=== PATIENT | male | born 1940 | race Caucasian/White ===

== ENCOUNTER 2018-03-02 07:37 | Outpatient (CLI) | payer MEDICARE ==
[2018-03-02 09:16] LABS: Hemoglobin 14.1 g/dL (14.0-18.0); Mean Corpuscular HGB CONC 32.2 g/dL (32.0-36.0); Mean Corpuscular Hemoglobin 29.5 pg (27.0-31.0); Mean Corpuscular Volume 91.7 fL (78.0-98.0); Mean Platelet Volume 7.8 fL (7.4-10.4); Platelet Count 185 thou/uL (130-400); RBC Distribution Width 13.4 % (11.5-14.5); Red Blood Cell (RBC) Count 4.79 mill/uL (4.70-6.10); White Blood Cell (WBC) Count 5.2 thou/uL (4.8-10.8)
[2018-03-02 09:27] LABS: PTT 32.3 SEC (22.9-36.1); Prothrombin Time 13.1 SEC (12.0-14.7)
[2018-03-02 09:32] LABS: ALT (SGPT) 25 U/L (8-55); AST (SGOT) 25 U/L (5-34); Albumin 4.5 g/dL (3.4-4.8); Alkaline Phosphatase 101 U/L (40-150); Anion Gap 15 mmol/L (10-20); BUN (Urea Nitrogen) 18 mg/dL (8.4-25.7); Bilirubin, Total 0.4 mg/dL (0.2-1.2); Calc. Creatinine Clearance 0 mL/min (70-130); Calcium 9.6 mg/dL (7.8-10.44); Carbon Dioxide 24 mmol/L (23-31); Cardiac Risk 6.2 (Less than 4.5); Chloride 106 mmol/L (98-107); Cholesterol 203 mg/dl (< 200 Desired); Estimated GFR-MDRD 71; Globulin 3.8 g/dL (2.4-3.5); Glucose 105 mg/dL (83-110); HDL Cholesterol 33 mg/dL (>60 Neg Risk); LDL Cholesterol, Calculated 140 mg/dL; Protein, Total 8.3 g/dL (5.8-8.1); Sodium 141 mmol/L (136-145); Triglycerides 152 mg/dL (Less than 150)
== END 2018-03-02 07:38 | disposition home or self-care (01) ==
LOC: LABBT 07:37
PROVIDERS: ATTEND Internal Medicine Cardiovascular Disease
DX: Z01.818 Encounter for other preprocedural examination (principal); I35.0 Nonrheumatic aortic (valve) stenosis
CPT/HCPCS: 80053; 80061; 85027; 85610; 85730; 93005; 93010

== ENCOUNTER → 2018-03-06 | Day surgery (SDC) | payer MEDICARE ==
[2018-03-02 08:18] VITALS: BMI 33.6
[~2018-03-06] MED LIST: Diazepam 5 MG TAB ONE; Fentanyl 100 MCG/2 ML VIAL ONE; Iopamidol 370 76% 100 ML VIAL ONE; Lidocaine 1% (PF) 30 ML VIAL ONE; Midazolam HCl 2 mg/2 ml Vial ONE; hydrALAZINE 20 MG/ML VIAL ONE
== END ==
LOC: CCL 06:01
PROVIDERS: ATTEND Internal Medicine Cardiovascular Disease
DX: I25.10 Atherosclerotic heart disease of native coronary artery without angina pectoris (principal); I35.0 Nonrheumatic aortic (valve) stenosis; I10 Essential (primary) hypertension; M19.90 Unspecified osteoarthritis, unspecified site; E78.00 Pure hypercholesterolemia, unspecified; Z79.82 Long term (current) use of aspirin; Z79.899 Other long term (current) drug therapy; Z79.84 Long term (current) use of oral hypoglycemic drugs; Z88.2 Allergy status to sulfonamides; Z88.8 Allergy status to other drugs, medicaments and biological substances
CPT/HCPCS: 76942; 93454; C1769; 99152; 99153; J0360; J1644; J2001; J2250; J3010

== ENCOUNTER → 2018-04-17 | Day surgery (SDC) | payer MEDICARE ==
[2018-04-16 15:23] VITALS: BMI 33.3
[~2018-04-17] MED LIST changes: -Diazepam 5 MG TAB ONE; -Fentanyl 100 MCG/2 ML VIAL ONE; -Iopamidol 370 76% 100 ML VIAL ONE; -Lidocaine 1% (PF) 30 ML VIAL ONE; -Midazolam HCl 2 mg/2 ml Vial ONE; +PROPOFOL 200 MG/20 ML VIAL ONE; -hydrALAZINE 20 MG/ML VIAL ONE
--- NOTE | 2018-04-18 03:01 | OP ---
PREPROCEDURE DIAGNOSIS: Aortic stenosis. POSTPROCEDURE DIAGNOSIS: Severe aortic stenosis. PROCEDURE PERFORMED: ANDREA. PROCEDURE IN DETAIL: The patient was consented for the procedure. I discussed the procedure in full detail with Mr. Rodrigez. Risks included but are not limited to damage to teeth, mouth, back of the th roat, esophagus requiring emergent surgery, reaction to medication. All questions were answere d. Conscious sedation performed with propofol. The probe passed easily into the esophagus. FINDINGS: Aortic valve is severely sclerotic. There is marked decreased excursion present. Multipl e measurements were performed measuring between 0.6 and 0.9. IMPRESSION: Severe aortic stenosis.
== END ==
LOC: CCL 10:17
PROVIDERS: ATTEND Internal Medicine Cardiovascular Disease
PROC: B24BZZ4 Ultrasonography of Heart with Aorta, Transesophageal (ICD-10-PCS; principal; 2018-04-17)
DX: I35.0 Nonrheumatic aortic (valve) stenosis (principal); I48.0 Paroxysmal atrial fibrillation; I10 Essential (primary) hypertension; M19.90 Unspecified osteoarthritis, unspecified site; M10.9 Gout, unspecified; E78.00 Pure hypercholesterolemia, unspecified; E11.9 Type 2 diabetes mellitus without complications; Z79.82 Long term (current) use of aspirin; Z79.84 Long term (current) use of oral hypoglycemic drugs; Z79.899 Other long term (current) drug therapy; Z88.2 Allergy status to sulfonamides; Z88.8 Allergy status to other drugs, medicaments and biological substances
CPT/HCPCS: 93312; J2704

== ENCOUNTER 2018-08-10 14:00 | Inpatient (IN) | payer MEDICARE ==
[2018-08-10 15:44] LABS: Hemoglobin 13.8 g/dL (14.0-18.0); Mean Corpuscular HGB CONC 34.9 g/dL (32.0-36.0); Mean Corpuscular Hemoglobin 32.3 pg (27.0-31.0); Mean Corpuscular Volume 92.5 fL (78.0-98.0); Mean Platelet Volume 8.3 fL (7.4-10.4); Platelet Count 207 thou/uL (130-400); RBC Distribution Width 13.3 % (11.5-14.5); Red Blood Cell (RBC) Count 4.28 mill/uL (4.70-6.10)
[2018-08-10 16:12] LABS: Anion Gap 13 mmol/L (10-20); BUN (Urea Nitrogen) 21 mg/dL (8.4-25.7); Calc. Creatinine Clearance 0 mL/min (70-130); Calcium 9.1 mg/dL (7.8-10.44); Carbon Dioxide 21 mmol/L (23-31); Chloride 107 mmol/L (98-107); Estimated GFR-MDRD 55; Glucose 120 mg/dL (83-110); Potassium 3.7 mmol/L (3.5-5.1); Sodium 137 mmol/L (136-145)
--- NOTE | 2018-08-13 08:24 | HP ---
PREOPERATIVE HISTORY AND PHYSICAL PROPOSED DATE OF SURGERY: 08/14/2018 HISTORY OF PRESENT ILLNESS: Mr. Rodrigez is an 78-year-old gentleman being admitted for aortic valve replacement, symptoms including shortness of breath, fatigue. He has no chest pain. He has no rhythm disturbance history. He has no congestive heart failure symptoms. He has no syncope. He has had paroxysmal atrial fibrillation ablated in the past. He has had no recurrent symptomatology. He has had cardiac catheterization, which shows minimal coronary disease. Echocardiogram shows severe aortic stenosis. Ejection fraction is preserved. CT scan of the chest shows anatomy amenable to minimally invasive approach. PAST MEDICAL HISTORY: 1. Aortic stenosis. 2. Hypertension. 3. DJD. 4. Achalasia. 5. Gout. 6. Hypercholesterolemia. 7. History of atrial fibrillation, status post ablation. 8. Diabetes mellitus. PAST SURGICAL HISTORY: 1. Bilateral cataract surgery. 2. Atrial fibrillation ablation. 3. Knee replacement. SOCIAL HISTORY: He is a nonsmoker. He is . ALLERGIES: SIMVASTATIN, SULFA ANTIBIOTICS, MONOSODIUM GLUTAMATE, AND ETODOLAC. CURRENT MEDICATIONS: 1. Aspirin 81 mg daily. 2. Sertraline 50 mg daily. 3. Isosorbide mononitrate 10 mg b.i.d. 4. Amlodipine 5 mg daily. 5. . 6. Atorvastatin 10 mg daily. 7. Trazodone 50 mg at bedtime. 8. Indomethacin 25 mg b.i.d. REVIEW OF SYSTEMS: A 10-point review of systems is performed and is negative except as stated above. PHYSICAL EXAMINATION: GENERAL: This is a well-developed and well-nourished male, resting comfortably in the examination room. VITAL SIGNS: Height is 5 feet 9 inches, weight is 225 pounds, heart rate is 93, and blood pressure is 135/79. HEENT: Sclerae nonicteric. Pupils are equal and round bilaterally. NECK: Supple. He has no carotid bruit. CHEST: Clear bilaterally. HEART: Rhythm is regular. He has a hard systolic murmur heard mainly in the right chest. ABDOMEN: Soft and nontender. EXTREMITIES: There is no edema. VASCULAR: There are palpable carotid, radial, and femoral pulses bilaterally. NEUROLOGIC: Grossly intact. IMAGING STUDIES: ANDREA shows an aortic valve area at 0.6. He did not have gradients performed on cath or on echo. ASSESSMENT AND PLAN: This is a pleasant 78-year-old gentleman, who is here for aortic valve replacement. We will plan for a bioprosthetic valve replacement. We have discussed the potential for minimally invasive surgery and he is agreeable. Job ID: [id number]
[2018-08-14] MEDS ORDERED: CEFAZOLIN 2 GM/50 ML BAG ONE (06:07)
[2018-08-14] MEDS ORDERED: Albumin 5% 500 ML ONE (06:09)
[2018-08-14] MEDS ORDERED: Vancomycin HCl 1.5 GM in Sodium Chloride 0.9% 250 ML 300 ML IVPB SCH (06:15)
[2018-08-14] MEDS ORDERED: Fentanyl 100 MCG/2 ML VIAL ONE ×2 (06:22→06:57)
[2018-08-14] MEDS ORDERED: Midazolam HCl 2 mg/2 ml Vial ONE ×2 (06:22→06:57)
[2018-08-14] MEDS ORDERED: Midazolam HCl 5 mg/5 ml Vial ONE (06:24)
[2018-08-14] MEDS ORDERED: Vecuronium 10 MG VIAL ONE ×2 (06:24→16:27)
[2018-08-14] MEDS ORDERED: Dexmedetomidine 200 MCG/2 ML VIAL ONE (06:24)
[2018-08-14] MEDS ORDERED: Insulin Regular 300 UNITS/3 ML VIAL ONE (09:29)
[2018-08-14] MEDS ORDERED: SUGAMMADEX SODIUM 500 MG/5 ML VIAL ONE (10:09)
[2018-08-14] MEDS ORDERED: SUGAMMADEX SODIUM 200 MG/2 ML VIAL ONE (10:10)
[2018-08-14] MEDS ORDERED: Bupivacaine HCl 0.5%/Epinephrine 1:200,000/PF 30 ml Vial ONE (11:17)
[2018-08-14] MEDS ORDERED: niCARdipine HCl 25 MG in Sodium Chloride 0.9% 250 ML 240 ML IVPB PRN (12:08)
[2018-08-14] MEDS ORDERED: Ondansetron PF 4 MG/2 ML Vial IVP PRN (12:08)
[2018-08-14] MEDS ORDERED: Bisacodyl 5 MG TAB PO PRN (12:08)
[2018-08-14] MEDS ORDERED: Nitroglycerin 50 MG/250 ML BOT 250 ML IVPB PRN (12:08)
[2018-08-14] MEDS ORDERED: D5 1/2 NS w/20 mEq KCL 1,000 ML IV SCH (12:08)
[2018-08-14] MEDS ORDERED: Norepinephrine 8 MG/0.9% NS 250 ML IVPB PRN (12:08)
[2018-08-14] MEDS ORDERED: Acetaminophen 325 MG TAB PO PRN (12:08)
[2018-08-14] MEDS ORDERED: Post-Op Insulin Drip Protocol IVPB ONE (12:08)
[2018-08-14] MEDS ORDERED: Guaifenesin DM 100-10/5 ML UDCUP PO PRN (12:08)
[2018-08-14] MEDS ORDERED: Mag-Al 1200 mg/1200 mg/30 ML UDCUP PO PRN (12:08)
[2018-08-14] MEDS ORDERED: Bisacodyl 10 MG SUPP PR PRN (12:08)
[2018-08-14] MEDS ORDERED: Morphine 2 MG/ML SYRINGE SLOW IVP PRN (12:08)
[2018-08-14] MEDS ORDERED: Hetastarch 6% 500 ML 500 ML IVPB PRN (12:08)
[2018-08-14] MEDS ORDERED: hydrALAZINE 20 MG/ML VIAL SLOW IVP PRN (12:08)
[2018-08-14] MEDS ORDERED: Fentanyl 100 MCG/2 ML VIAL SLOW IVP PRN (12:08)
[2018-08-14] MEDS ORDERED: HYDROcodone/Acetaminophen 5/325 mg Tablet PO PRN (12:08)
[2018-08-14] MEDS ORDERED: Magnesium 2 GM/50 ML 2 GM in Premix Bag 1 BAG IVPB SCH (12:15)
[2018-08-14] MEDS ORDERED: Insulin Regular 300 UNITS/3 ML VIAL SC PRN (12:23)
[2018-08-14] MEDS ORDERED: Dextrose 50% Abboject 50 ML SYRINGE SLOW IVP PRN (12:23)
[2018-08-14] MEDS ORDERED: Dextrose 5% in Water 1,000 ML IV PRN (12:23)
[2018-08-14 12:27] LABS: #Eosinphils 0.1 thou/uL (0.0-0.7); #Lymphocytes 2.2 thou/uL (1.20-3.40); #Neutrophils 15.2 thou/uL (1.40-6.50); %Basophils 0.1 % (0.0-1.0); %Eosinophils 0.7 % (0.0-10.0); %Lymphocytes 11.8 % (21.0-51.0); %Monocytes 5.5 % (0.0-10.0); %Neutrophils 81.9 % (42.0-75.0); Hemoglobin 12.6 g/dL (14.0-18.0); Mean Corpuscular HGB CONC 33.7 g/dL (32.0-36.0); Mean Corpuscular Hemoglobin 31.6 pg (27.0-31.0); Mean Corpuscular Volume 93.9 fL (78.0-98.0); Mean Platelet Volume 8.1 fL (7.4-10.4); Platelet Count 142 thou/uL (130-400); RBC Distribution Width 13.3 % (11.5-14.5); Red Blood Cell (RBC) Count 3.98 mill/uL (4.70-6.10); White Blood Cell (WBC) Count 18.5 thou/uL (4.8-10.8)
[2018-08-14] MEDS: Fentanyl 100 MCG/2 ML VIAL SLOW IVP PRN ×3 (12:31→16:45)
[2018-08-14 12:32] LABS: INR-International Normal Ratio 1.3; PTT 34.9 SEC (22.9-36.1); Prothrombin Time 16.5 SEC (12.0-14.7)
[2018-08-14] MEDS: Ketorolac Tromethamine 30 MG/ML VIAL IVP SCH ×3 (12:34→23:09)
[2018-08-14 12:44] LABS: Anion Gap 7 mmol/L (10-20); BUN (Urea Nitrogen) 15 mg/dL (8.4-25.7); Calc. Creatinine Clearance 118 mL/min (70-130); Calcium 8.2 mg/dL (7.8-10.44); Carbon Dioxide 24 mmol/L (23-31); Chloride 110 mmol/L (98-107); Estimated GFR-MDRD 79; Glucose 130 mg/dL (83-110); Potassium 3.5 mmol/L (3.5-5.1); Sodium 137 mmol/L (136-145)
--- NOTE | 2018-08-14 13:26 | RAD ---
AP VIEW CHEST: HISTORY: Post open heart surgery. FINDINGS: AP view chest is obtained on 08/14/2018. Comparison is made to previous exam from 04/14/2010. AP view chest demonstrates a left jugular central line in place. Right-sided chest tubes are in place. Cardiomegaly is seen. Pulmonary vascular congestion is seen. No evidence of pneumothorax seen. IMPRESSION: Right-sided chest tubes in place. There has been placement of a prosthetic aortic valve. POS: [facility]
[2018-08-14] MEDS: HYDROcodone/Acetaminophen 5/325 mg Tablet PO PRN ×2 (13:49→20:52)
[2018-08-14] MEDS: CEFAZOLIN 2 GM/50 ML BAG IVPB SCH ×2 (13:50→22:12)
[2018-08-14] MEDS: Potassium Chloride 20 MEQ/100 ML PREMIX BAG IVPB PRN (13:50)
[2018-08-14] MEDS ORDERED: Calcium Chloride 1 GM/10 ML Abboject SYRINGE ONE (16:27)
[2018-08-14] MEDS ORDERED: Lidocaine 2% PF 100 mg/5 ml Syringe ONE (16:27)
[2018-08-14] MEDS ORDERED: Potassium Chloride 60 MEQ/30 ML VIAL ONE (16:27)
[2018-08-14] MEDS ORDERED: PHENYLEPHRINE-NS 100 MCG/ML 10 ML SYRINGE ONE (16:27)
[2018-08-14] MEDS ORDERED: Heparin 5,000 UNITS/ML VIAL ONE (16:27)
[2018-08-14] MEDS ORDERED: Aminocaproic Acid 5 GM/20 ML VIAL ONE (16:27)
[2018-08-14] MEDS ORDERED: Protamine Sulfate 250 MG/25 ML VIAL ONE (16:27)
[2018-08-14] MEDS ORDERED: Nitroglycerin 50 MG/250 ML BOT ONE (16:27)
[2018-08-14] MEDS ORDERED: Sodium Bicarb 50 MEQ/50 ML VIAL ONE (16:27)
[2018-08-14] MEDS ORDERED: Magnesium 5 GM/10 ML VIAL ONE (16:27)
[2018-08-14] MEDS ORDERED: Ketorolac Tromethamine 30 MG/ML VIAL ONE (16:27)
[2018-08-14] MEDS ORDERED: Mannitol 12.5 GM/50 ML ONE (16:27)
[2018-08-14] MEDS ORDERED: ePHEDrine/0.9% NaCl/PF SYRINGE 50 mg/10 ml ONE (16:27)
[2018-08-14] MEDS ORDERED: Heparin 30,000 units/30 ml VIAL ONE (16:27)
--- NOTE | 2018-08-14 16:40 | CON ---
DATE OF CONSULTATION: REASON FOR CONSULTATION: Post-cardiac management for recent AVR. HISTORY OF PRESENT ILLNESS: Mr. Rodrigez is a very pleasant 78-year-old gentleman, whom I have seen and evaluated in the past. He has a history of severe aortic stenosis. This was felt to be symptomatic. He recently underwent minimally invasive AVR. He is currently doing well. He has been extubated. He is currently on IV nitroglycerine for blood pressure management. MEDICATIONS: Home medications include sertraline, omeprazole, Crestor, trazodone, aspirin, indomethacin, isosorbide, metformin, and amlodipine. ALLERGIES: ZOCOR AND SULFATE. SOCIAL HISTORY: No current tobacco or alcohol use. REVIEW OF SYSTEMS: A 10-point review of systems is reviewed and as above, otherwise negative. PHYSICAL EXAMINATION: GENERAL: Patient is a pleasant male who is in no acute distress. The patient appears their stated age. VITAL SIGNS: Blood pressure 100/49, pulse 60, temperature afebrile. NEUROLOGIC: The patient is alert and oriented x3 with no focal neurologic deficits. HEENT: Sclerae without icterus. Mouth has moist mucous membranes with normal pallor. NECK: No JVD. Carotid upstroke brisk. No bruits bilaterally. LUNGS: Clear to auscultation with unlabored respirations. BACK: No scoliosis or kyphosis. CARDIAC: Regular rate and rhythm with normal S1 and S2. No S3 or S4 noted. No significant rubs, murmurs, thrills, or gallops noted throughout the precordium. PMI is not displaced. There is no parasternal heave. CHEST: Small horizontal incision noted overlying the right chest. ABDOMEN: Soft, nontender, nondistended. No peritoneal signs present. No hepatosplenomegaly. No abnormal striae. EXTREMITIES: 2+ femoral and 2+ dorsalis pedis pulses. No cyanosis, clubbing, or edema. SKIN: No gross abnormalities. LABORATORY DATA: Pertinent labs: Hemoglobin 12.6. Creatinine 0.92. IMPRESSION: 1. Severe aortic stenosis, status post aortic valve replacement. 2. Diabetes mellitus. 3. Hypertension. RECOMMENDATIONS: The patient is currently doing well. We would continue current treatment. We will try to wean off his IV nitroglycerin. We will add low-dose beta-serafin therapy when more awake, likely in a.m. he appears to allergic to statin therapy. Job ID: [id number]
[2018-08-14] MEDS: Vancomycin HCl 1.5 GM in Sodium Chloride 0.9% 250 ML 300 ML IVPB SCH (17:32)
[2018-08-14 17:59] LABS: Hemoglobin 12.3 g/dL (14.0-18.0)
[2018-08-14 18:13] LABS: Potassium 4.4 mmol/L (3.5-5.1)
[2018-08-14] MEDS: Famotidine/PF 20 mg/2ml Vial SLOW IVP SCH (20:29)
[2018-08-15] MEDS: Fentanyl 100 MCG/2 ML VIAL SLOW IVP PRN (01:00)
[2018-08-15] MEDS: HYDROcodone/Acetaminophen 5/325 mg Tablet PO PRN ×4 (03:07→20:24)
[2018-08-15 04:10] LABS: #Basophils 0.1 thou/uL (0.0-0.2); #Lymphocytes 1.8 thou/uL (1.20-3.40); #Monocytes 1.1 thou/uL (0.11-0.59); #Neutrophils 7.6 thou/uL (1.40-6.50); %Basophils 0.5 % (0.0-1.0); %Eosinophils 0.1 % (0.0-10.0); %Lymphocytes 17.3 % (21.0-51.0); %Monocytes 10.2 % (0.0-10.0); %Neutrophils 71.8 % (42.0-75.0); Hemoglobin 11.8 g/dL (14.0-18.0); Mean Corpuscular HGB CONC 34.2 g/dL (32.0-36.0); Mean Corpuscular Volume 93.8 fL (78.0-98.0); Mean Platelet Volume 7.8 fL (7.4-10.4); Platelet Count 138 thou/uL (130-400); RBC Distribution Width 13.4 % (11.5-14.5); Red Blood Cell (RBC) Count 3.69 mill/uL (4.70-6.10); White Blood Cell (WBC) Count 10.6 thou/uL (4.8-10.8)
[2018-08-15 04:33] LABS: Anion Gap 9 mmol/L (10-20); BUN (Urea Nitrogen) 15 mg/dL (8.4-25.7); Calc. Creatinine Clearance 114 mL/min (70-130); Calcium 7.7 mg/dL (7.8-10.44); Carbon Dioxide 22 mmol/L (23-31); Chloride 108 mmol/L (98-107); Estimated GFR-MDRD 76; Glucose 120 mg/dL (83-110); Sodium 135 mmol/L (136-145)
[2018-08-15] MEDS: Potassium Chloride 20 MEQ/100 ML PREMIX BAG IVPB PRN (04:44)
[2018-08-15] MEDS: CEFAZOLIN 2 GM/50 ML BAG IVPB SCH (05:05)
[2018-08-15] MEDS: Ketorolac Tromethamine 30 MG/ML VIAL IVP SCH ×3 (05:06→17:22)
[2018-08-15] MEDS: Vancomycin HCl 1.5 GM in Sodium Chloride 0.9% 250 ML 300 ML IVPB SCH (05:44)
--- NOTE | 2018-08-15 06:46 | PDOC.CTH ---
Cardiology Progress Note - Subjective Doing well overall. - Objective Vital Signs Pulse Ox 08/14/18 19:54 96 Weight 288 lb 5.834 oz 08/13/18 08/14/18 08/15/18 06:59 06:59 06:59 Intake Total 1251 Output Total 2360 Balance -1109 - Physical Examination General/Neuro: alert & oriented x3, NAD Neck: carotid US brisk, no JVD present Lungs: CTA, unlabored respirations Heart: PMI normal, RRR Abdomen: NT/ND, soft Extremities: + femoral B - Labs Result Diagrams: 08/15/18 03:55 08/15/18 03:30 - Assessment/Plan s/p AVR HTN DM Doing well BB added Statin allergy on ASA IS and ambulation
[2018-08-15] MEDS: Metoprolol Tartrate 25 MG TAB PO SCH ×2 (08:40→20:18)
[2018-08-15] MEDS: Magnesium 2 GM/50 ML 2 GM in Premix Bag 1 BAG IVPB SCH (08:40)
[2018-08-15] MEDS: Famotidine/PF 20 mg/2ml Vial SLOW IVP SCH (08:40)
[2018-08-15] MEDS ORDERED: Aspirin 325 MG TAB PO SCH (09:00)
--- NOTE | 2018-08-15 09:19 | RAD ---
ONE VIEW CHEST: Comparison: 08-14-18 History: Status post open heart surgery. FINDINGS: Stable left sided internal jugular central venous catheter. Stable cardiomegaly. Lung volumes continu e to be diminished. Patchy interstitial opacities do remain. There is evidence of a right sided chest tube and mediastinal drainage catheter. IMPRESSION: No significant interval change. POS: [facility]
[2018-08-15] MEDS ORDERED: Cepastat Lozenges 1 LOZ PO PRN (14:21)
[2018-08-15] MEDS ORDERED: Bisacodyl 5 MG TAB PO PRN (17:42)
[2018-08-15] MEDS ORDERED: diphenhydrAMINE 25 MG CAP PO PRN (17:42)
[2018-08-15] MEDS ORDERED: Mineral Oil ENEMA PR PRN (17:42)
[2018-08-15] MEDS ORDERED: Mag-Al 1200 mg/1200 mg/30 ML UDCUP PO PRN (17:42)
[2018-08-15] MEDS ORDERED: Artificial Tear Sol 15 ML BOT EA EYE PRN (17:42)
[2018-08-15] MEDS ORDERED: Nitroglycerin 0.4 MG TAB (25 Tab Bottle) SL PRN (17:42)
[2018-08-15] MEDS ORDERED: Guaifenesin DM 100-10/5 ML UDCUP PO PRN (17:42)
[2018-08-15] MEDS ORDERED: Zolpidem Tartrate 5 MG TAB PO PRN (17:42)
[2018-08-15] MEDS ORDERED: Bisacodyl 10 MG SUPP PR PRN (17:42)
[2018-08-15] MEDS: Famotidine 20 MG TAB PO SCH (20:18)
--- NOTE | 2018-08-15 22:02 | EKG ---
Test Reason : POST CABG Blood Pressure : / mmHG Vent. Rate : 077 BPM Atrial Rate : 077 BPM P-R Int : 234 ms QRS Dur : 094 ms QT Int : 440 ms P-R-T Axes : 049 -13 042 degrees QTc Int : 497 ms Sinus rhythm with 1st degree A-V block Septal infarct (cited on or before 20-MAR-2015) Abnormal ECG When compared with ECG of 10-AUG-2018 15:04, MS interval has increased QRS axis Shifted right Questionable change in initial forces of Anterior leads Confirmed by Charlie MACIAS ([id number]) on 08/15/2018 10:02:02 PM Referred By: Delgado ZEPEDA Confirmed By:Charlie MACIAS
[2018-08-16] MEDS: Ketorolac Tromethamine 30 MG/ML VIAL IVP SCH ×4 (00:06→18:20)
[2018-08-16] MEDS: HYDROcodone/Acetaminophen 5/325 mg Tablet PO PRN ×2 (00:07→04:24)
[2018-08-16] MEDS ORDERED: Furosemide 40 MG TAB PO SCH (06:45)
--- NOTE | 2018-08-16 07:44 | CON ---
DATE OF CONSULTATION: 08/15/2018 HISTORY OF PRESENT ILLNESS: Mr. Rodrigez is a very pleasant gentleman, who has undergone aortic valve replacement. Apparently, he was referred to Dr. Rodriguez for progressive shortness of breath after being identified as having aortic stenosis. He has been extubated per protocol and had his chest tube removed. He has no complaints other than some mild chest discomfort at this time. PAST MEDICAL HISTORY: Remarkable for; 1. Hypertension. 2. Achalasia. 3. History of gout. 4. History of lipid disorder. 5. History of an atrial fibrillation ablation. 6. History of diabetes. 7. History of cataract surgery. 8. History of knee replacement. SOCIAL HISTORY: He is a nonsmoker and nondrinker. FAMILY HISTORY: He is . 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 ALLERGIES: TO SIMVASTATIN, SULFA, ETODOLAC. MEDICATIONS: Prior to admission, he was on; 1. Aspirin. 2. Zoloft. 3. Isosorbide mononitrate. 4. Amlodipine. 5. Atorvastatin. 6. Trazodone. 7. Indomethacin. REVIEW OF SYSTEMS: A 10-point review of systems completed, is otherwise negative. PHYSICAL EXAMINATION: GENERAL: He is a very pleasant gentleman, in no distress. VITAL SIGNS: Blood pressure 122/73, heart rate 75, respiratory rate 17, oximetry is 90% to 92% on room air. HEENT: Pupils are equal. Sclerae anicteric. NECK: Supple. LUNGS: Clear. HEART: Regular rhythm. S1 and S2 are audible. ABDOMEN: Soft and nontender. EXTREMITIES: No clubbing, cyanosis, or edema. LABORATORY DATA: White count 10.6, hemoglobin 11.8, and platelets 138,000. Sodium 135, potassium 4, chloride 108, bicarbonate 22, BUN 15, and creatinine 0.95. IMPRESSION: 1. Status post replacement of his aortic valve via minimally invasive approach. Clinically doing well. 2. History of questionable asbestos exposure. I see nothing on his radiograph suggestive of asbestosis. He declined a workup for this via the [employer] when he worked in [place]. 3. he appears stable postoperatively. TIME SPENT: This is a 50-minute consult, with greater than 50% of time was spent on the unit coordinating care. Job ID: [id number] [facility]
[2018-08-16 08:20] VITALS: BMI 33.9
[2018-08-16] MEDS: Famotidine 20 MG TAB PO SCH ×2 (08:42→22:42)
[2018-08-16] MEDS: Metoprolol Tartrate 25 MG TAB PO SCH ×2 (08:42→22:43)
[2018-08-16] MEDS: Aspirin 325 mg Enteric Coated Tablet PO SCH (08:43)
[2018-08-16] MEDS: Magnesium 2 GM/50 ML 2 GM in Premix Bag 1 BAG IVPB SCH (08:43)
[2018-08-16] MEDS: Amlodipine 5 MG TAB PO SCH ×2 (08:43→22:42)
--- NOTE | 2018-08-16 11:14 | PRG ---
DATE OF SERVICE: 08/16/2018 SUBJECTIVE: Elia has no complaints today. OBJECTIVE: VITAL SIGNS: He is afebrile, heart rate 70, respiratory rate 18, oximetry is 95%, and blood pressure 144/75. LUNGS: Clear with the exception, possibly slight decrease in breath sounds in his right base. HEART: Regular rhythm. S1 and S2 are normal. He has a grade 2/6 systolic murmur in his aortic outflow area. ABDOMEN: Soft and nontender. EXTREMITIES: Without edema. LABORATORY DATA: He has no new lab today other than blood sugars, which are well controlled. IMPRESSION: Status post aortic valve replacement, clinically stable. PLAN: Continue physical therapy. Job ID: [id number]
[2018-08-16 15:09] LABS: Actual Bicarbonate (HCO3v) 25 mEq/L (22-28); Analyzer IN Cardio OR; Base Excess -1.7 mEq/L (-2.0 to +3.0); Calcium, Ionized 1.04 mmol/L (1.16-1.32); Chloride (ABG LAB) 106 mmol/L (98-106); Hemoglobin (Hb) 10.4 g/dL (12.6-17.4); Potassium - ABG Lab 4.33 mmol/L (3.70-5.30); Sodium 137.2 mmol/L (133-146); pH (venous) 7.31 (7.32-7.43)
[2018-08-16 15:09] LABS: Actual Bicarbonate (HCO3a) 23.7 mEq/L (22-28); Analyzer IN Cardio OR; Base Excess (BEa) -1.4 mEq/L (-2.0 to +3.0); CO2 Tension 40.9 mmHg (35.0-45.0); Calcium, Ionized 1.14 mmol/L (1.12-1.30); Carboxyhemoglobin (COHb) 0.9 gm% (0.0-3.0); O2 Tension (PaO2) 71.9 mmHg (> 60.0); Potassium - ABG Lab 3.93 mmol/L (3.70-5.30); pH, Arterial 7.38 (7.35-7.45)
[2018-08-16 15:10] LABS: Analyzer IN Cardio OR; Base Excess (BEa) -1.8 mEq/L (-2.0 to +3.0); CO2 Tension 44.5 mmHg (35.0-45.0); Calcium, Ionized 1.04 mmol/L (1.12-1.30); Carboxyhemoglobin (COHb) 0.8 gm% (0.0-3.0); Hemoglobin (Hb) 12.4 g/dL (14.0-18.0); O2 Tension (PaO2) 388.6 mmHg (> 60.0); Potassium - ABG Lab 4.35 mmol/L (3.70-5.30); pH, Arterial 7.35 (7.35-7.45)
[2018-08-16 15:10] LABS: Actual Bicarbonate (HCO3a) 22.9 mEq/L (22-28); Analyzer IN Cardio OR; CO2 Tension 44.6 mmHg (35.0-45.0); Calcium, Ionized 0.99 mmol/L (1.12-1.30); Carboxyhemoglobin (COHb) 0.3 gm% (0.0-3.0); O2 Tension (PaO2) 181.5 mmHg (> 60.0); Potassium - ABG Lab 4.45 mmol/L (3.70-5.30); pH, Arterial 7.33 (7.35-7.45)
[2018-08-16 15:11] LABS: Actual Bicarbonate (HCO3a) 21.1 mEq/L (22-28); Analyzer IN Cardio OR; Base Excess (BEa) -4.9 mEq/L (-2.0 to +3.0); CO2 Tension 42.6 mmHg (35.0-45.0); Calcium, Ionized 1.11 mmol/L (1.12-1.30); Carboxyhemoglobin (COHb) 0.6 gm% (0.0-3.0); Hemoglobin (Hb) 12.2 g/dL (14.0-18.0); O2 Tension (PaO2) 445.1 mmHg (> 60.0); Potassium - ABG Lab 3.69 mmol/L (3.70-5.30); pH, Arterial 7.31 (7.35-7.45)
[2018-08-16 15:11] LABS: Actual Bicarbonate (HCO3a) 21.8 mEq/L (22-28); Analyzer IN Cardio OR; Base Excess (BEa) -4.4 mEq/L (-2.0 to +3.0); CO2 Tension 44.5 mmHg (35.0-45.0); Calcium, Ionized 1.17 mmol/L (1.12-1.30); Carboxyhemoglobin (COHb) 0.3 gm% (0.0-3.0); Hemoglobin (Hb) 10.9 g/dL (14.0-18.0); O2 Tension (PaO2) 89.8 mmHg (> 60.0); Potassium - ABG Lab 3.83 mmol/L (3.70-5.30); pH, Arterial 7.31 (7.35-7.45)
[2018-08-16 15:18] LABS: Puncture Site ALINE
[2018-08-16 15:19] LABS: Puncture Site ALINE
[2018-08-16 15:19] LABS: Puncture Site ALINE
[2018-08-16 15:20] LABS: Puncture Site ALINE
[2018-08-16 15:21] LABS: Puncture Site ALINE
--- NOTE | 2018-08-16 17:01 | PDOC.CTH ---
Cardiology Progress Note - Subjective Doing well - Objective Vital Signs Temp Pulse Pulse Pulse Resp BP BP 08/16/18 15:40 98.4 F 80 20 08/16/18 12:45 77 73 154/76 H 148/73 H 08/16/18 11:40 98.3 F 67 20 08/16/18 07:55 98.1 F 70 18 BP Pulse Ox Pulse Ox 08/16/18 15:40 141/69 H 94 L 08/16/18 12:45 88 L 08/16/18 11:40 150/75 H 94 L 08/16/18 07:55 144/75 H 95 Weight 229 lb 14.4 oz 08/15/18 08/16/18 08/17/18 06:59 06:59 06:59 Intake Total 1251 1680 Output Total 2360 635 Balance -1109 1045 - Physical Examination General/Neuro: alert & oriented x3, NAD Neck: carotid US brisk, no JVD present Lungs: unlabored respirations Heart: PMI normal, RRR Abdomen: NT/ND, soft Extremities: + femoral B - Labs Result Diagrams: 08/15/18 03:55 08/15/18 03:30 - Assessment/Plan AVR HTN DM doing well On BB, ASA Allergic to statin Home soon
[2018-08-16] MEDS ORDERED: Atorvastatin Calcium 10 MG TAB PO SCH (21:00)
[2018-08-17] MEDS: Ketorolac Tromethamine 30 MG/ML VIAL IVP SCH ×2 (00:01→05:57)
--- NOTE | 2018-08-17 07:44 | OP ---
DATE OF PROCEDURE: 08/14/2018 PREOPERATIVE DIAGNOSES: Aortic stenosis/hypertension/hyperlipidemia/diabetes mellitus. POSTOPERATIVE DIAGNOSES: Aortic stenosis/hypertension/hyperlipidemia/diabetes mellitus. PROCEDURE PERFORMED: Minimally invasive aortic valve replacement with #21 and Intuity bioprosthetic valve. SURGEON: Dr. Bob Rodriguez and Dr. Marcial Pratt. ANESTHESIA: General endotracheal - Dr. Holden Wilson. PUMP TIME: 106. CROSS-CLAMP TIME: 70. CORE TEMPERATURE: 34 degree Celsius. PERFUSION: Natasha Jayant. DRAIN: 24-Polish chest tube x2. FLUIDS: None. TRANSFUSIONS: None. DESCRIPTION OF PROCEDURE: After consent was obtained, the patient was brought to the operating room and placed in supine position on the operating table. Appropriate central line was placed and general endotracheal anesthesia induced. Chest, abdomen and groins were prepped and draped in the usual sterile fashion. Cutdown was performed through transverse incision over the left groin. Left common femoral artery and vein were controlled and purse-string suture was placed for cannulation. A 3rd interspace right anterior thoracotomy was performed. The right lung was deflated. The chest cavity was entered. The third rib was divided. Lizandro retractor was placed after dividing the mammary artery and vein between clips. Minimally invasive retractor was then placed. The pericardium was incised in the vertical fashion and the pericardial stay sutures were placed. The patient was systemically heparinized. After adequate heparinization, a 20-Polish arterial cannula and a 25-Polish venous cannula were positioned. The venous cannula was positioned using both ANDREA and fluoroscopy to position its tip in the superior vena cava at the level of clavicle. The patient was then placed on cardiopulmonary bypass. The left ventricular sump drain was placed in the right superior pulmonary vein. The aortic cross clamp was applied and antegrade cardioplegia administered in the aortic root. One liter of cold [place] cardioplegia was given. CO2 was administered in the pericardial well and left chest during the open portion of the procedure. A transverse hockey stick aortotomy was performed. The aortic stay suture was then placed. The aortic valve was inspected. It was a trileaflet valve that was heavily calcified. The leaflets were removed and the annulus decalcified. The valve measured at 21. Individual sutures were placed at [place] of each valve leaflet. The 21 Intuity valve was washed and brought into the operative field. Sutures were placed through the valve sewing ring and the valve was seated. Valve seated nicely and all sutures were visible. Patel tourniquets were placed on the sutures. The valve balloon was inflated to 4.5 mmHg for 10 seconds. The balloon was deflated and deployment device was removed. The valve was inspected and was seated nicely with no visible cuff. Sutures were then secured with core knots . The aortotomy was closed in running fashion with 2 layer 4-0 Prolene suture. Prior to completion of patch suture line, the aorta was deaired. After adequate de-airing, the cross-clamp was removed. The left ventricular sump drain was removed and purse-string suture was secured. The aortic root vent was removed and purse-string suture was secured. Using ANDREA, the valve was inspected. There was no paravalvular leak and good hemodynamic parameters. The patient was warmed and weaned from cardiopulmonary bypass. After resumption of sinus rhythm , good hemodynamics, temperature greater than 36.5, bypass was discontinued. Protamine was administered. Decannulation was performed and purse-string suture was secured. A single stitch was placed in the groin for hemostasis. After adequate hemostasis had been obtained in the groin, the groin was irrigated, closed in layers, and Dermabond applied to the skin. In the chest, two 24-Polish chest tubes had been placed, one that was used to infuse carbon dioxide and the other was placed for drainage. These were positioned one in thorax and one in the pericardium. They were secured to the skin with silk suture. The Lizandro retractor was then removed. The rib was reapproximated with 0 Vicryl suture. Second and third ribs were reapproximated with 0 Vicryl suture. Wounds were then closed in layers and Dermabond applied to the skin. The patient was awakened, extubated, and transferred to the intensive care unit in stable condition. Needle, sponge, and instrument counts were all reported as correct at the end of the procedure. Job ID: [id number] [facility]
[2018-08-17 08:04] VITALS: BP 170/81; TEMP 98.7
[2018-08-17] MEDS: Aspirin 325 mg Enteric Coated Tablet PO SCH (08:04)
[2018-08-17] MEDS: Amlodipine 5 MG TAB PO SCH (08:04)
[2018-08-17] MEDS: Metoprolol Tartrate 25 MG TAB PO SCH (08:05)
[2018-08-17] MEDS: Famotidine 20 MG TAB PO SCH (08:05)
--- NOTE | 2018-08-17 09:04 | PDOC.CTH ---
Cardiology Progress Note - Objective Vital Signs Temp Pulse Resp BP BP Pulse Ox 08/17/18 08:00 98.7 F 74 20 170/81 H 93 L 08/17/18 04:22 98.2 F 97 16 139/90 93 L 08/17/18 00:10 100.1 F H 100 19 166/92 H 92 L 08/17/18 00:00 100.1 F H 100 19 166/92 H 92 L 08/16/18 22:42 103 H 178/95 H Weight 220 lb 8 oz 08/16/18 08/17/18 08/18/18 06:59 06:59 06:59 Intake Total 1680 600 Output Total 635 2350 Balance 1045 -1750 - Labs Result Diagrams: 08/15/18 03:55 08/15/18 03:30 - Assessment/Plan AVR HTN DM Doing well On BB, ASA Statin allergy noted. Rehab and IS
--- NOTE | 2018-08-18 05:41 | DIS ---
DATE OF ADMISSION: 08/14/2018 DATE OF DISCHARGE: 08/17/2018 DIAGNOSES: 1. Aortic stenosis. 2. Hypertension. 3. Dyslipidemia. 4. Diabetes mellitus. PROCEDURES: MICS-AVR via anterior right thoracotomy. DISCHARGE MEDICATIONS: 1. Aspirin 325 mg daily. 2. Amlodipine 5 mg b.i.d. 3. Lipitor 5 mg at bedtime. 4. Indomethacin 50 mg p.r.n. 5. Metformin 750 mg tab, half tab daily. 6. Omeprazole 20 mg daily. 7. Zoloft 100 mg tab, half tab daily. 8. Trazodone 50 mg at bedtime p.r.n. 9. Lopressor 12.5 mg b.i.d. DESCRIPTION OF HOSPITAL STAY: Mr. Rodrigez is an 78-year-old gentleman who underwent minimally invasive aortic valve replacement for aortic stenosis. Postoperatively, he has had no rhythm disturbances. He was moved from the intensive care unit on the first postoperative day after wires and tubes were removed. The remainder of his hospital stay has been spent recovering and getting him back on his feet. At the time of discharge, he is ambulatory, following a regular diet, having good bowel and bladder function. Incision is clean and dry without evidence of infection. FOLLOWUP: Follow up will be with me in [address] Guzmán in a month. Job ID: [id number]
== END 2018-08-17 11:22 | disposition home or self-care (01) | DRG 221 ==
LOC: SURG A 08-14 05:26 → CCU 08-14 12:10 → 2NO 08-15 19:01
PROVIDERS: ADMIT Thoracic Surgery (Cardiothoracic Vascular Surgery); ATTEND Thoracic Surgery (Cardiothoracic Vascular Surgery)
PROC: 02RF08Z Replacement of Aortic Valve with Zooplastic Tissue, Open Approach (ICD-10-PCS; principal; 2018-08-14)
PROC: 5A1221Z Performance of Cardiac Output, Continuous (ICD-10-PCS; 2018-08-14)
DX: I35.0 Nonrheumatic aortic (valve) stenosis (principal); I10 Essential (primary) hypertension; E11.9 Type 2 diabetes mellitus without complications; E78.5 Hyperlipidemia, unspecified; M19.90 Unspecified osteoarthritis, unspecified site; K22.0 Achalasia of cardia; M10.9 Gout, unspecified; E78.00 Pure hypercholesterolemia, unspecified; I48.91 Unspecified atrial fibrillation
CPT/HCPCS: 36416; 36430; 71045; 76001; 80048; 82805; 85025; 85027; 85610; 85730; 86850; 86900; 86901; 93005; 93010; 93798; J0670; J1642; J1644; J1815; J1885; J2001; J2150; J2250; J2405; J2720; J3010; J3370; J3475; J3480; J7050; P9045; S0017; S0028

== ENCOUNTER 2018-08-10 14:05 | Outpatient (CLI) | payer MEDICARE ==
--- NOTE | 2018-08-10 22:46 | EKG ---
Test Reason : Blood Pressure : / mmHG Vent. Rate : 076 BPM Atrial Rate : 076 BPM P-R Int : 202 ms QRS Dur : 086 ms QT Int : 418 ms P-R-T Axes : 042 -46 053 degrees QTc Int : 470 ms Normal sinus rhythm Left axis deviation Anteroseptal infarct (cited on or before 20-MAR-2015) Abnormal ECG When compared with ECG of 02-MAR-2018 08:53, No significant change was found Confirmed by MELISSA MORALES, SRodrigo ([id number]) on 08/10/2018 10:46:15 PM Referred By: DUANE Confirmed By:DR. Juan M TORRES MD
== END 2018-08-10 14:06 | disposition home or self-care (01) ==
LOC: LABBT 14:05
PROVIDERS: ATTEND Thoracic Surgery (Cardiothoracic Vascular Surgery)
DX: Z01.818 Encounter for other preprocedural examination (principal); I35.0 Nonrheumatic aortic (valve) stenosis
CPT/HCPCS: 80048; 85027; 86850; 86900; 86901; 93005; 93010

== ENCOUNTER 2018-08-24 09:33 | Emergency (ER) | payer MEDICARE ==
[2018-08-24 10:05] LABS: #Basophils 0.1 thou/uL (0.0-0.2); #Eosinphils 0.8 thou/uL (0.0-0.7); #Lymphocytes 2.2 thou/uL (1.20-3.40); #Monocytes 0.7 thou/uL (0.11-0.59); #Neutrophils 4.7 thou/uL (1.40-6.50); %Basophils 1.1 % (0.0-1.0); %Eosinophils 9.3 % (0.0-10.0); %Lymphocytes 25.8 % (21.0-51.0); %Neutrophils 55.8 % (42.0-75.0); Hemoglobin 12.6 g/dL (14.0-18.0); Mean Corpuscular HGB CONC 34.2 g/dL (32.0-36.0); Mean Corpuscular Hemoglobin 31.2 pg (27.0-31.0); Mean Corpuscular Volume 91.3 fL (78.0-98.0); Mean Platelet Volume 7.2 fL (7.4-10.4); Platelet Count 344 thou/uL (130-400); Red Blood Cell (RBC) Count 4.05 mill/uL (4.70-6.10); White Blood Cell (WBC) Count 8.4 thou/uL (4.8-10.8)
--- NOTE | 2018-08-24 10:35 | RAD ---
PORTABLE CHEST 1 VIEW: DATE: 08/24/2018. TIME: 10:11 a.m. HISTORY: Atrial fibrillation. FINDINGS: Comparison is made with the exam of 08/15/2018. There has been interval removal of the left internal jugular central venous catheter. There is sultana nued elevation of the right hemidiaphragm. The left lung is clear. There is a suggestion of a small right pleural effusion. No pneumothoraces are identified. POS: [facility]
[2018-08-24 10:42] LABS: ALT (SGPT) 20 U/L (8-55); AST (SGOT) 37 U/L (5-34); Albumin 3.5 g/dL (3.4-4.8); Alkaline Phosphatase 74 U/L (40-150); Anion Gap 14 mmol/L (10-20); BUN (Urea Nitrogen) 18 mg/dL (8.4-25.7); Bilirubin, Total 0.3 mg/dL (0.2-1.2); CK (CPK) 48 U/L (30-200); Calc. Creatinine Clearance 0 mL/min (70-130); Calcium 9.4 mg/dL (7.8-10.44); Carbon Dioxide 22 mmol/L (23-31); Chloride 102 mmol/L (98-107); Estimated GFR-MDRD 46; Glucose 134 mg/dL (83-110); Potassium 4.8 mmol/L (3.5-5.1); Protein, Total 8.5 g/dL (5.8-8.1); Sodium 133 mmol/L (136-145)
[2018-08-24 10:53] LABS: CKMB 1.1 ng/mL (0-6.6)
--- NOTE | 2018-08-25 13:58 | EKG ---
Test Reason : A-FIB Blood Pressure : / mmHG Vent. Rate : 086 BPM Atrial Rate : 288 BPM P-R Int : 000 ms QRS Dur : 140 ms QT Int : 428 ms P-R-T Axes : 208 -43 122 degrees QTc Int : 512 ms Atrial flutter with variable A-V block Left axis deviation Left bundle branch block Abnormal ECG Confirmed by SOFÍA GUZMAN D.O. ([id number]), index editor VIVIANA OROZCO ([id number]) on 08/25/2018 1:58:16 PM Referred By: BOLIVAR Confirmed By:SOFÍA GUZMAN D.O.
== END 2018-08-24 12:32 | disposition home or self-care (01) ==
LOC: ERS 09:33
DX: I49.9 Cardiac arrhythmia, unspecified (principal); E11.9 Type 2 diabetes mellitus without complications; E78.5 Hyperlipidemia, unspecified; I10 Essential (primary) hypertension; Z79.82 Long term (current) use of aspirin; Z79.84 Long term (current) use of oral hypoglycemic drugs; Z79.899 Other long term (current) drug therapy
CPT/HCPCS: 71045; 80053; 82550; 82553; 83880; 84484; 85025; 93005; 94760

== ENCOUNTER 2020-10-14 12:33 | Emergency (ER) | payer MEDICARE ==
[2020-10-14 13:24] LABS: #Eosinphils 0.1 thou/uL (0.0-0.7); #Lymphocytes 1.7 thou/uL (1.20-3.40); #Monocytes 0.4 thou/uL (0.11-0.59); #Neutrophils 3.3 thou/uL (1.40-6.50); %Basophils 0.5 % (0.0-1.0); %Lymphocytes 31.5 % (21.0-51.0); %Monocytes 7.6 % (0.0-10.0); %Neutrophils 59.3 % (42.0-75.0); Hemoglobin 14.3 g/dL (14.0-18.0); Mean Corpuscular HGB CONC 33.4 g/dL (32.0-36.0); Mean Corpuscular Hemoglobin 29.8 pg (27.0-31.0); Mean Corpuscular Volume 89.3 fL (78.0-98.0); Platelet Count 145 thou/uL (130-400); RBC Distribution Width 12.7 % (11.5-14.5); Red Blood Cell (RBC) Count 4.78 mill/uL (4.70-6.10); White Blood Cell (WBC) Count 5.5 thou/uL (4.8-10.8)
--- NOTE | 2020-10-14 13:35 | RAD ---
PORTABLE CHEST: Date: 10/14/2020 HISTORY: Chest pain. COMPARISON: 08/24/2018 study. FINDINGS: Heart size is enlarged. Surgical clips are seen in the right hilar region. The lungs are clear of any infiltrative process. IMPRESSION: Cardiomegaly. No acute changes. POS: [facility]
[2020-10-14 13:46] LABS: ALT (SGPT) 25 U/L (8-55); AST (SGOT) 34 U/L (5-34); Albumin 3.7 g/dL (3.4-4.8); Alkaline Phosphatase 89 U/L (40-110); Anion Gap 11 mmol/L (10-20); BUN (Urea Nitrogen) 16 mg/dL (8.4-25.7); Bilirubin, Total 0.4 mg/dL (0.2-1.2); Calc. Creatinine Clearance 0 mL/min (70-130); Calcium 8.6 mg/dL (7.8-10.44); Carbon Dioxide 25 mmol/L (23-31); Chloride 101 mmol/L (98-107); Globulin 4.4 g/dL (2.4-3.5); Glucose 160 mg/dL (83-110); Protein, Total 8.1 g/dL (5.8-8.1); Sodium 133 mmol/L (136-145)
--- NOTE | 2020-10-17 20:42 | EKG ---
Test Reason : CHEST PAIN Blood Pressure : / mmHG Vent. Rate : 071 BPM Atrial Rate : 071 BPM P-R Int : 222 ms QRS Dur : 106 ms QT Int : 438 ms P-R-T Axes : 059 -74 069 degrees QTc Int : 475 ms Sinus rhythm with 1st degree A-V block Left axis deviation Anteroseptal infarct , age undetermined Abnormal ECG Confirmed by BETHANY LYON MD ([id number]), copy editor VIVIANA OROZCO ([id number]) on 10/17/2020 8:41:55 PM Referred By: Confirmed By:BETHANY LYON MD
== END 2020-10-14 15:12 | disposition home or self-care (01) ==
LOC: ERS 12:33
DX: J11.1 Influenza due to unidentified influenza virus with other respiratory manifestations (principal); I10 Essential (primary) hypertension; Z20.822 Contact with and (suspected) exposure to COVID-19; I48.91 Unspecified atrial fibrillation; M10.9 Gout, unspecified; E11.9 Type 2 diabetes mellitus without complications; E78.5 Hyperlipidemia, unspecified; Z79.82 Long term (current) use of aspirin; Z79.899 Other long term (current) drug therapy
CPT/HCPCS: 36415; 71045; 80053; 84484; 85025; 93005

== ENCOUNTER 2023-03-20 14:25 | Emergency (ER) | payer OTHER, MEDICARE ==
[2023-03-20] MEDS ORDERED: Lidocaine 2% PF 5 ML VIAL ONE (15:40)
== END 2023-03-20 16:45 | disposition home or self-care (01) ==
LOC: ERS 14:25
DX: S16.1XXA Strain of muscle, fascia and tendon at neck level, initial encounter (principal); S93.402A Sprain of unspecified ligament of left ankle, initial encounter; S01.01XA Laceration without foreign body of scalp, initial encounter; E78.5 Hyperlipidemia, unspecified; I10 Essential (primary) hypertension; V87.8XXA Person injured in other specified noncollision transport accidents involving motor vehicle (traffic), initial encounter; Z79.82 Long term (current) use of aspirin; Z79.899 Other long term (current) drug therapy
CPT/HCPCS: 12001; 70450; 71045; 72125; G0390; J2001

== ENCOUNTER 2024-06-03 13:27 | Emergency (ER) | payer MEDICARE ==
[2024-06-03] MEDS ORDERED: Morphine 4 MG/ML VIAL ONE (19:21)
[2024-06-03] MEDS ORDERED: HYDROcodone/Acetaminophen 5/325 mg Tablet ONE (20:23)
[2024-06-03] MEDS ORDERED: Gabapentin 300 MG CAP ONE (20:24)
== END 2024-06-03 21:00 | disposition home or self-care (01) ==
LOC: ERS 13:27
DX: M48.061 Spinal stenosis, lumbar region without neurogenic claudication (principal); M54.50 Low back pain, unspecified; G89.29 Other chronic pain; I10 Essential (primary) hypertension; M10.9 Gout, unspecified; E78.5 Hyperlipidemia, unspecified; I48.91 Unspecified atrial fibrillation; W18.30XA Fall on same level, unspecified, initial encounter; Y93.89 Activity, other specified; Z79.82 Long term (current) use of aspirin; Z79.899 Other long term (current) drug therapy
CPT/HCPCS: 70450; 72125; 72131; 73080; 96374; 99283; J2272